=== PATIENT | male | born 1940 | race Caucasian/White ===

== ENCOUNTER 2018-05-24 01:47 | Outpatient (CLI) | payer MEDICARE | END 2018-05-24 23:59 | disposition home or self-care (01) | LOC: DIABETIC 01:47 | PROVIDERS: ATTEND Specialist | DX: E11.65 Type 2 diabetes mellitus with hyperglycemia (principal); Z79.82 Long term (current) use of aspirin; Z79.899 Other long term (current) drug therapy; Z79.84 Long term (current) use of oral hypoglycemic drugs | CPT/HCPCS: G0108 ==

== ENCOUNTER 2018-07-09 04:36 | Outpatient (CLI) | payer MEDICARE | END 2018-07-09 23:59 | disposition home or self-care (01) | LOC: DIABETIC 04:36 | PROVIDERS: ATTEND Specialist | DX: E11.65 Type 2 diabetes mellitus with hyperglycemia (principal); Z79.82 Long term (current) use of aspirin; Z79.84 Long term (current) use of oral hypoglycemic drugs; Z79.899 Other long term (current) drug therapy | CPT/HCPCS: G0108 ==

== ENCOUNTER 2019-06-14 06:28 | Day surgery (SDC) | payer MEDICARE ==
[2019-06-10 16:20] LABS: BASOPHILS % (AUTO) 0.4 % (0-1); EOSINOPHILS % (AUTO) 0.5 % (0-6); LYMPHOCYTES # (AUTO) 2.9 X10'3 (1.1-4.8); LYMPHOCYTES % (AUTO) 40.4 % (21-51); MEAN CORPUSCULAR HEMOGLOBIN 32.3 PG (27.0-31.0); MEAN CORPUSCULAR HGB CONC 34.2 g/dL (33.0-36.5); MEAN CORPUSCULAR VOLUME 94.6 FL (78-98); MEAN PLATELET VOLUME 8.1 FL (7.4-10.4); MONOCYTES # (AUTO) 0.7 X10'3 (0-0.9); MONOCYTES % (AUTO) 9.7 % (2-12); NEUTROPHILS # (AUTO) 3.5 X10'3 (1.8-7.7); PRE OP PLATELET COUNT 203 X10'3 (140-440); RED BLOOD COUNT 4.65 X10'6 (4.70-6.10); RED CELL DISTRIBUTION WIDTH 16.5 % (11.5-14.5)
[2019-06-10 16:34] LABS: ALBUMIN 4.1 G/DL (3.4-5.0); ALBUMIN/GLOBULIN RATIO 1.2 (1.1-1.5); ALKALINE PHOSPHATASE 53 IU/L (46-116); BLOOD UREA NITROGEN 24 MG/DL (7-18); BUN/CREATININE RATIO 19.5 (5.4-32.0); CALCIUM 9.4 MG/DL (8.5-10.1); CHLORIDE 107 MMOL/L (99-107); CREATININE 1.23 MG/DL (0.60-1.10); PRE OP ALT 36 U/L (30-65); PRE OP ANION GAP 8 (8-16); PRE OP AST 20 U/L (10-37); PRE OP BILIRUB, TOTAL 0.5 MG/DL (0.0-1.0); PRE OP GLUCOSE 121 MG/DL (70-104); PRE OP SODIUM 143 MMOL/L (135-145); TOTAL CARBON DIOXIDE 27.9 MMOL/L (24-32); TOTAL PROTEIN 7.5 G/DL (6.4-8.2); eGFR 57 ML/MIN
[~2019-06-14] VITALS: Ht 162.6 cm; Wt 98.4 kg
[~2019-06-14 06:28] MED LIST: AMLO10TA13 PO; ASPI-845 PO; ATOR40TA72 PO; BUDE10.2 INH; CHOL400T14 PO; EMPA25TA PO; EZET10TA21 PO; FENO134C PO; FLO0.4C PO; GLIP5TAB13 PO; LISI1TAB28 PO; MELO-102 PO; METF-438 PO; METO50TA17 PO; OCUVITE PO; OMEG1CAP2 PO; SITA100T11 PO; VITA-134 PO; ceFAZolin/D5W- 1GM premix 50 ML IV ONE; famotidine 10mg tablet PO ONE; ringers solution, lacted 1,000 ML IV SCH
[2019-06-14 06:40] VITALS: BP 127/72
[2019-06-14] MEDS ORDERED: BUPIVAcaine/PF 2.5 mg/ml (0.25%) 30ml vial ONE (06:40)
[2019-06-14] MEDS ORDERED: LIDOcaine 0.5% (5mg/ml) 50ml vial ONE (07:12)
[2019-06-14] MEDS ORDERED: fentaNYL/PF 50MCG/1 ML 2ML syringe IV PRN ×2 (07:15)
[2019-06-14] MEDS ORDERED: labetalol 20mg/4ml (5mg/ml) syringe IV PRN (07:15)
[2019-06-14] MEDS ORDERED: morphine 4 MG/ML inj SYRINge IV PRN ×2 (07:15)
[2019-06-14] MEDS ORDERED: hydrALAZINE 20mg/ml inj. IV PRN (07:15)
[2019-06-14] MEDS ORDERED: ondansetron/PF 4mg/2ml inj IV PRN (07:15)
[2019-06-14] MEDS ORDERED: ringers solution, lacted 1,000 ML IV SCH (07:15)
[2019-06-14] MEDS ORDERED: propofol 10mg/ml 20ml vial IV ONE (08:43)
[2019-06-14] MEDS ORDERED: fentaNYL/PF 50MCG/1 ML 2ML syringe ONE (08:50)
[2019-06-14] MEDS ORDERED: MIDAZolam 5mg/5ml vial ONE (08:50)
[2019-06-14 09:31] VITALS: BP 103/89
[2019-06-14 09:41] VITALS: BP 104/66
[2019-06-14 09:51] VITALS: BP 110/68
[2019-06-14 10:01] VITALS: BP 105/76
[2019-06-14 10:11] VITALS: BP 105/72
--- NOTE | 2019-06-14 10:21 | NUR ---
ALL DC CRITERIA HAS BEEN MET. IV TAKEN OUT WITHOUT COMPLICATIONS. ALL INSTRUCTIONS COVERED AND ALL QUESTIONS ANSWERED. DRESSINGS CDI. OUT VIA WHEELCHAIR TO PERSONAL VEHICLE WHERE PATIENT WAS SECURED IN AND DRIVEN HOME BY FAMILY. OUT VIA WHEELCHAIR TO FRIEND KALIN CAR. NO COMPLICATIONS NOR QUESTIONS. Addendum: 06/14/19 at 1030 by Darrell Diaz RN, RN Amended: Links added.
== END 2019-06-14 10:21 | disposition home or self-care (01) ==
LOC: PAS 06:28
PROVIDERS: ATTEND Orthopaedic Surgery Hand Surgery
DX: M67.431 Ganglion, right wrist (principal); G56.01 Carpal tunnel syndrome, right upper limb; E11.9 Type 2 diabetes mellitus without complications; I10 Essential (primary) hypertension; E78.00 Pure hypercholesterolemia, unspecified; Z79.84 Long term (current) use of oral hypoglycemic drugs; Z79.891 Long term (current) use of opiate analgesic; Z79.899 Other long term (current) drug therapy; Z90.49 Acquired absence of other specified parts of digestive tract; Z98.890 Other specified postprocedural states
CPT/HCPCS: 25111; 36415; 80053; 82948; 85025; 93005; J0690; J2001; J2250; J2704; J3010; J3490; A4215; J7120

== ENCOUNTER 2021-01-25 09:36 | Day surgery (SDC) | payer MEDICARE ==
[2021-01-25] VITALS (9 sets, daily range): BP systolic 102–138; BP diastolic 56–92
[~2021-01-25] VITALS: Ht 157.5 cm; Wt 94.0 kg
[~2021-01-25 09:36] MED LIST changes: -EZET10TA21 PO; +EZET10TA6 PO; -LISI1TAB28 PO; +LISI1TAB51 PO; -ceFAZolin/D5W- 1GM premix 50 ML IV ONE; -famotidine 10mg tablet PO ONE; -ringers solution, lacted 1,000 ML IV SCH
[2021-01-25] MEDS ORDERED: normal saline 1,000 ML IV SCH (10:00)
[2021-01-25] MEDS ORDERED: diphenhydrAMINE 25mg capsule PO PRN (10:00)
[2021-01-25] MEDS ORDERED: METO200T49 PO (10:27)
[2021-01-25 10:40] LABS: BASOPHILS % (AUTO) 0.5 % (0-1); EOSINOPHILS # (AUTO) 0.1 X10'3 (0-0.9); EOSINOPHILS % (AUTO) 0.7 % (0-6); HEMATOCRIT 45.7 % (42.0-52.0); LYMPHOCYTES % (AUTO) 43.7 % (21-51); MEAN CORPUSCULAR HEMOGLOBIN 29.6 PG (27.0-31.0); MEAN CORPUSCULAR VOLUME 89.8 FL (78-98); MEAN PLATELET VOLUME 8.4 FL (7.4-10.4); MONOCYTES # (AUTO) 0.8 X10'3 (0-0.9); MONOCYTES % (AUTO) 8.9 % (2-12); NEUTROPHILS # (AUTO) 4.2 X10'3 (1.8-7.7); NEUTROPHILS % (AUTO) 46.2 % (42-75); PLATELET COUNT 186 X10'3 (140-440); RED BLOOD COUNT 5.08 X10'6 (4.70-6.10); RED CELL DISTRIBUTION WIDTH 21.7 % (11.5-14.5); WHITE BLOOD COUNT 9.1 X10'3 (4.5-11.0)
[2021-01-25 10:46] LABS: ALBUMIN 3.9 G/DL (3.4-5.0); ANION GAP 8 (8-16); CALCIUM 9.3 MG/DL (8.5-10.1); CHLORIDE 105 MMOL/L (99-107); CREATININE 1.01 MG/DL (0.60-1.10); GLUCOSE 206 MG/DL (70-104); MAGNESIUM 2.5 MG/DL (1.5-2.4); POTASSIUM 4.4 MMOL/L (3.5-5.1); SODIUM 141 MMOL/L (135-145); TOTAL CARBON DIOXIDE 27.6 MMOL/L (24-32); eGFR 71 ML/MIN
[2021-01-25 10:52] LABS: BLOOD UREA NITROGEN 36 MG/DL (7-18); BUN/CREATININE RATIO 35.6 (5.4-32.0)
[2021-01-25] MEDS ORDERED: PIOG45TA64 PO (11:02)
[2021-01-25 11:26] LABS: ANISOCYTOSIS 3+; PLATELET ESTIMATE NORMAL
[2021-01-25] MEDS ORDERED: midazolam 1 mg/ML 2ml injection ONE ×2 (12:30→13:12)
[2021-01-25] MEDS ORDERED: fentaNYL/PF 50MCG/1 ML 2ML syringe ONE (12:30)
[2021-01-25] MEDS ORDERED: iohexol 350MG/ML 100ml bottle IV ONE ×2 (12:30→13:07)
[2021-01-25] MEDS ORDERED: iohexol 350 MG/ML 50ML vial IV ONE (12:30)
[2021-01-25] MEDS ORDERED: heparin 1,000unit/ml 10ml vial 10 ML ONE (12:30)
[2021-01-25] MEDS ORDERED: LIDOcaine 1% (10mg/ml)w/preservative injection 20ml MDV ONE (12:30)
[2021-01-25] MEDS ORDERED: clopidogrel 300mg tablet ONE (13:30)
[2021-01-25] MEDS ORDERED: proCHLORperazine 10 MG/2 ml inj IV PRN (14:05)
[2021-01-25] MEDS ORDERED: HYDROcodone/acetaminophen 10/325mg tab PO PRN (14:05)
[2021-01-25] MEDS ORDERED: acetaminophen 325mg tablet PO PRN (14:05)
[2021-01-25] MEDS ORDERED: HYDROcodone/acetaminophen 5mg/325mg tablet PO PRN (14:05)
[2021-01-25] MEDS ORDERED: ondansetron/PF 4mg/2ml inj IV PRN (14:05)
[2021-01-25] MEDS ORDERED: normal saline 1000ml 1,000 ML IV SCH (14:05)
--- NOTE | 2021-01-25 15:00 | NUR ---
Dr. Damon at bedside removed Fem stop. No hematoma will continue to monitor.
== END 2021-01-25 16:30 | disposition home or self-care (01) ==
LOC: SSTAY O 09:36
PROVIDERS: ATTEND Internal Medicine Cardiovascular Disease
DX: R94.39 Abnormal result of other cardiovascular function study (principal); I25.119 Atherosclerotic heart disease of native coronary artery with unspecified angina pectoris; I48.0 Paroxysmal atrial fibrillation; E78.5 Hyperlipidemia, unspecified; I10 Essential (primary) hypertension; E11.9 Type 2 diabetes mellitus without complications; G47.30 Sleep apnea, unspecified; Z79.899 Other long term (current) drug therapy; Z79.84 Long term (current) use of oral hypoglycemic drugs; Z86.73 Personal history of transient ischemic attack (TIA), and cerebral infarction without residual deficits; Z87.891 Personal history of nicotine dependence; Z85.828 Personal history of other malignant neoplasm of skin
CPT/HCPCS: 36415; 80048; 82948; 83735; 85025; 85610; 93005; 93458; 99152; 99153; C1725; C1751; C1760; C1769; C1874; C1894; C9600; J1644; J2001; J2250; J3010; Q9967; 85008; A4620; A6258